=== PATIENT | male | born 1960 | race Caucasian/White ===

== ENCOUNTER 2024-04-05 12:56 | Inpatient (IN) | payer OTHER, SELFPAY ==
[2024-04-04 15:07] VITALS: BP 129/90
[2024-04-04] MEDS: OMNIPAQUE 50 ML PO (16:07)
[2024-04-04 16:17] LABS: % Basophils 0.3 % (0-2); % Immature Granulocytes 0.4 % (0-0.5); % Lymphocytes 8.9 % (20.5-51.1); % Monocytes 3.7 % (1.7-9.3); % Neutrophils 85.7 % (42.2-75.2); Absolute Eosinophils 0.1 10^3/uL (0-0.7); Absolute Immature Granulocytes 0.1 10^3/uL (0-0.05); Absolute Monocytes 0.4 10^3/uL (0.1-0.6); Hemoglobin 14.8 g/dL (13.0-18.0); Mean Corp Hgb Conc. 34.4 g/dL (33.0-37.0); Mean Corpuscular Hgb 29.6 pg (27.0-31.0); Mean Platelet Volume 9.7 fL (7.4-10.4); Nucleated Red Blood Cells % 0 % (-); Platelet Count 272 10^3/uL (130-400); Red Cell Dist. Width 13.7 % (11.5-14.5); White Blood Cell Count 11.7 10^3/uL (4.8-10.8)
[2024-04-04 16:24] VITALS: BMI 25.9
[2024-04-04 16:31] LABS: ALT (SGPT) 18 U/L (0-50); AST (SGOT) 24 U/L (17-59); Albumin 4.2 g/dl (3.5-5.0); Alkaline Phosphatase 78 U/L (38-126); Blood Urea Nitrogen 23 mg/dl (9-20); Calcium 10.2 mg/dl (8.4-10.2); Carbon Dioxide 28 mmol/L (22-30); Chloride 96 mmol/L (98-107); Estimated Creatinine Clearance 97 ml/min; Glucose 147 mg/dl (70-99); Potassium 4.2 mmol/L (3.5-5.1); Sodium 138 mmol/L (135-145); Total Protein 7.2 g/dl (6.3-8.2); eGFR > 60.00
[2024-04-04 17:05] LABS: Lipase 34 U/L (23-300)
[2024-04-04 17:33] LABS: Urine Albumin 1+ (Neg - Trace); Urine Bilirubin Negative (Negative); Urine Character Clear (Clear); Urine Color Yellow; Urine Glucose Negative (Negative); Urine Ketone Trace (Negative); Urine Leukocyte Negative (Negative); Urine Nitrite Negative (Negative); Urine Occult Blood 2+ (Negative); Urine Urobilinogen Negative (Neg - 1+)
[2024-04-04 17:41] LABS: Urine Bacteria Few (Negative); Urine Mucus Many; Urine Squamous Cell 0-2 /LPF (Few); Urine White Cell 0-2 /HPF (0-5)
[2024-04-04] MEDS: ZOFRAN 4 MG IV (19:14)
[2024-04-04 19:16] VITALS: BP 148/90
[2024-04-04 20:00] VITALS: BP 130/90
[2024-04-04] MEDS: ZOSYN 50 IV (20:18)
--- NOTE | 2024-04-04 20:24 | ED.GENMED ---
History of Present Illness
General
Chief Complaint: Abdominal Pain
Source: patient
Exam Limitations: none
Time Seen by Provider: 04/04/24 15:26
Nursing documentation reviewed up to this point in time: agreed with
History of Present Illness
History of Present Illness:
Patient to ED with complaint of diffuse abdominal pain. States pain started on Tuesday after exercising and continues to worsen. Initially he thought it due to a muscle strain. Has been taking ibuprofen q6 since. This AM he had an episode of
vomiting and diarrhea. He was seen by his PCP and advised to come to eD for eval. Reports temp of 100.5 on Tuesday, no fever since. Had colonoscopy a few months ago, polyp removed, otherwise normal.
Past History
Past History
ED Past Medical History: Hypercholesterolemia
ED Past Surgical History: Other (hernia left inguinal)
Social History
Tobacco: Non-smoker
Alcohol: None
Review of Systems
Review of Systems
Allergies reviewed?: Yes
All Other Systems: ROS reviewed and negative except as documented in HPI and ROS
Constitutional: Reports no symptoms
EENT: Reports no symptoms
Respiratory: Reports no symptoms
Cardiac: Reports no symptoms
ABD/GI: Reports abdominal pain, nausea, vomiting (1 episode this AM) and diarrhea (1 episode this AM)
: Reports no symptoms
Musculoskeletal: Reports no symptoms
Skin: Reports no symptoms
Neurological: Reports no symptoms
Psychiatric: Reports no symptoms
Phy Exam
General Physical Exam
General Presentation: well appearing and no apparent distress
General age: appears stated age
General Skin: warm and dry
General Habitus: normal
General Mental: alert
Cardiovascular Exam
Cardiovascular Exam: regular rate/rhythm and no edema
Pulmonary Exam
Pulmonary Exam: lungs clear and no respiratory distress
Gastrointestinal Exam
Gastrointestinal Exam: normal bowel sounds, soft, no organomegaly, non distended, no cva tenderness and guarding
Palpation: generalized: Moderate tenderness (Diffuse. L>R)
Musculoskeletal Exam
Musculoskeletal Exam: full ROM and neuro vasc intact
Skin Exam
Skin Exam: normal color, warm/dry and no rash
Psychiatric Exam
Psychiatric Exam: normal mood/affect
Course
Orders/Labs/Results
Orders:
Orders
04/04/24 16:02
CT Abd/pel W Iv And Oral Contr Urgent
Comment:
Reason For Exam: diffuse abd pain
Iohexol [Omnipaque] See Protocol PO NOW STA
04/04/24 16:13
Complete Blood Count/With Diff Urgent
Comprehensive Metabolic Panel Urgent
Lipase Urgent
04/04/24 17:08
US Abdomen Complete/Upper Urgent
Comment:
Reason For Exam: upper abd. pain
04/04/24 17:27
Urinalysis Reflex To Culture Urgent
Date Specimen was Collected: 04/04/24
Time Specimen was Collected: 17:26
Urine Microscopic Reflex Cult Urgent
04/04/24 18:56
HYDROmorphone [Dilaudid] 0.5 mg IV NOW STA
Ondansetron Injectable [Zofran] 4 mg IV NOW STA
04/04/24 20:09
Piperacillin/Tazo 3.375 Gram [Zosyn] 3.375 gram in 50 ml IV NOW
04/04/24 21:11
Admit/Transfer Patient As Directed
Co-Sign Provider:
Level of Care: Observation services
Assign to:: Medical/Surgical
Physician / Group: , surgical services
Diagnosis: Acute uncomplicated appendicitis
PRN Pain Medication Management As Directed
May give lesser potent ordered pain med per pt: Yes
preference::
Protocol:: Medication orders for pain may be administered in a
manner that supports deferring to patient preference
when the pt is:
- Requesting an ordered lesser potent pain medication.
Least to most potent pain medications are defined
as: acetaminophen < NSAID < tramadol < opioids
(morphine, oxycodone, hydromorphone).
- Requesting a lesser dose of the same medication IF
ORDERED.
- Requesting a less intrusive route of administration
if both routes are prescribed by the provider (PO <
IV).
04/04/24 21:12
Code Status As Directed
Resuscitation Status: Full Code
04/04/24 22:00
Flush (0.9% Sodium Chloride) [Flush (Nss)] See Dose Instructions IV PER PROTOCOL
04/04/24 22:23
0.9% Sodium Chloride 1000 ml [Nss] 1,000 ml IV 120 mls/hr
Acetaminophen [Tylenol] 650 mg PO Q4HPRN PRN
Bisacodyl [Dulcolax] 10 mg RECTAL [id number] PRN
Docusate W/Senna [Senokot-S] 1 tablet PO BIDPRN PRN
HYDROmorphone [Dilaudid] 0.5 mg IV Q4HPRN PRN
Ondansetron Injectable [Zofran] 4 mg IV Q6HPRN PRN
Polyethylene Glycol Powder [Miralax] 17 grams PO DAILYPRN PRN
04/04/24 22:23
Activity As Directed
Activity Level: Out of Bed-Early Mobility
Vital Signs As Directed
Frequency: Per unit guidelines
DX Deep Vein Thrombosis Video Routine
04/05/24 02:00
Piperacillin/Tazo 3.375 Gram [Zosyn] 3.375 gram in 50 ml IV Q6H
04/05/24 Breakfast
NPO
Allow oral meds: Yes
Allow clear liquids: No
04/05/24 18:00
Enoxaparin Sodium [Lovenox] 40 mg SC QPM
Abnormal Lab Results
04/04/24 04/04/24
16:13 17:27
WBC 11.7 H 10^3/uL
(4.8-10.8)
Abs Immat Gran (auto) 0.1 H 10^3/uL
(0-0.05)
Absolute Neuts (auto) 10.0 H 10^3/uL
(1.4-6.5)
Absolute Lymphs (auto) 1.0 L 10^3/uL
(1.2-3.4)
Neutrophils % 85.7 H %
(42.2-75.2)
Lymphocytes % 8.9 L %
(20.5-51.1)
Chloride 96 L mmol/L
(98-107)
BUN 23 H mg/dl
(9-20)
Glucose 147 H mg/dl
(70-99)
Total Bilirubin 2.0 H mg/dl
(0.2-1.3)
Urine Ketones Trace A
(Negative)
Ur Occult Blood Reflex 2+ A
(Negative)
Urine RBC 3-6 A /HPF
(0-2)
Urine Bacteria (Reflex) Few A
(Negative)
Urine Albumin (Reflex) 1+ A
(Neg - Trace)
04/04/24 16:13
04/04/24 16:13
Vital Signs
Initial and Last Documented VS:
Initial Vital Signs
Temp Pulse Resp BP Pulse Ox
98.2 F 91 20 129/90 100
04/04/24 15:07 04/04/24 15:07 04/04/24 15:07 04/04/24 15:07 04/04/24 15:07
Last Documented Vital Signs
Temp Pulse Resp BP Pulse Ox
98.2 F 80 20 135/85 96
04/05/24 07:06 04/05/24 07:06 04/05/24 07:06 04/05/24 07:06 04/05/24 08:00
*Radiology
Radiology exam reviewed: radiology read reviewed
*Pulse Oximetry
Patient hypoxic: no
*Critical Care Note
Total Time (30-74mins, 75-104mins- exclusive of procedures): Not Applicable
Update Note
Update Note:
Dr. Donnelly notified of CT findings. Patient to be admitted to his service. NUZHATOWarren Oliveira started in ED. Discussed findings and plan with patient and spouse. Patient is agreeable to admission.
ED Attending Note
-
Portions of this chart may have been created with voice recognition software.� Occasional wrong word or��sound alike� substitutions may have occurred due to the inherent limitations of voice recognition software.
Discharge Plan
Departure
Patient Disposition: Admit
Date of Disposition: 04/04/24
Time of Disposition: 20:31
Presentation/result/management discussed w/ accepting MD/DO: Dr. Donnelly
Patient with high blood pressure during this ER visit?: No
Condition: Fair
Covid-19: Not Applicable
Discharge Problem:
Acute appendicitis, uncomplicated, SBO (small bowel obstruction)
Interventions
Interventions:
*Risk Screen - Suicide Last Done: 04/04/24 22:18
*General Assessment Last Done: 04/04/24 22:18
*Neglect/Abuse Screening Last Done: 04/04/24 22:18
ED- Fall Risk Assessment Last Done: 04/04/24 16:24
*ED COVID-19 Vaccine History Last Done: 04/04/24 22:38
*Nursing Disposition Last Done: 04/04/24 22:38
QZ-Cibotx-Hinvcyliry Assessment Last Done: 04/04/24 16:24
Discharge Date and Time
Discharge Date/Time: 04/04/24 22:40
[2024-04-04 21:00] VITALS: BP 136/89
--- NOTE | 2024-04-04 21:23 | HPS.HSE ---
Addendum entered and electronically signed by Danny Ruiz MD 04/05/24 10:27:
Patient seen and examined independently of admitting nurse practitioner. Agree with documented progress note with additions/details noted here.
HPI: 63-year-old male who is in his usual baseline state of health until this past Tuesday when he woke with some mild abdominal discomfort which was generalized in nature. After going to the gym and exercising midday this pain increased in severity
and became sharp and more in the right lower quadrant. He continue to observe his symptoms over the past few days and has developed associated anorexia, chills as well as diffuse abdominal discomfort. Bloating and distention particularly over the
last 24 hours. Normal bowel movement on Tuesday. Loose bowel movements Tuesday. Was referred for emergency department evaluation yesterday evening after being seen by his primary care provider.
No similar episodes in the past. Pain persistent and greatest in the suprapubic right lower quadrant. Nausea continues but no further vomiting. Passing flatus occasionally and feels pressure/urge to have bowel movement.
Denies any significant or active medical history. Only past abdominal surgical history is left inguinal herniorrhaphy.
AF VSS
NAD AAO x 3; acutely ill but comfortable appearing lying in hospital bed. at bedside.
ABD: Softly distended tenderness palpation localized in right lower quadrant with voluntary guarding. Positive Rovsing sign.
Assessment: 63-year-old male with acute appendicitis and probable reactive ileus.
Reviewed with patient history, examination and CT imaging consistent with acute appendicitis. Discussed both operative and nonoperative management options and associated risks/benefits of approaches. Patient is in agreement to proceed with
appendectomy. Reviewing radiologist report it has been read as a possible small bowel obstruction. Discussed with patient and his . This is unlikely given history and on personal review of imaging pattern more consistent with ileus due to
severity of appendicitis.
Laparoscopic appendectomy reviewed in detail with the patient. Discussed operative technique utilizing diagrams or drawings, alternative management options, benefits and potential risks such as but not limited to bleeding, infectious or wound
healing complications, iatrogenic injury to surrounding viscera and staple line leakage. Discussed the typical postoperative recovery pending operative findings.
Any of the patient's concerns or questions were fully addressed and informed consent was obtained.
Plan: OR for laparoscopic appendectomy.
Empiric antibiotic coverage with Zosyn.
Nothing by mouth, IV fluid hydration and supportive care awaiting operative room availability.
SCDs for DVT prophylaxis
Original Note:
Family Physician
-
Family Physician: Tawanda Brady
Chief Complaint
-
Abdominal pain
History of Present Illness
a 63 years old male with PMH of hypercholesteremia and past surgical history of LT inguinal hernia repair(2019). Present in ER with a complain of abdominal pain started Tuesday after exercising. Patient took Advil as assuming the pain was related to
muscle strain. Pain started as generalized abdominal pain, described as sharp, stabbing pain that increases with movement. This morning pain get worse and associated with nausea, vomiting x1, diarrhea, and fever 100.5. Patient was seen by the PCP
and advised to come to ER for eval. Denied constipation, urinary symptoms, SOB, chest pain or any other symptoms.
Medical History
Past Medical History
Past Medical History: Reports Hypercholesterolemia
Past Surgical History: Reports Other (LT inguinal hernia repair)
Social History
Tobacco: Non-smoker
Alcohol: Occasional
Drug: None
Personal:
Living: With Family
Employment: Other
Family History
Family History: Not pertinent
Allergies / Home Medications
Allergies reflects when Allergies were last updated in [facility].
Home Medications with original date entered in [facility]
Allergy/Medication List:
Patient Allergies
Allergy/AdvReac Type Severity Reaction Status Date / Time
No Known Allergies Allergy Verified 04/04/24 15:07
Home Medications Table - record
�Medication �Instructions �Recorded �Confirmed
bismuth subsalicylate 262 mg 2 tab PO Q1HPRN PRN stomach issues 04/04/24 04/04/24
chewable tablet (Pepto-Bismol)
calcium carbonate (Antacid 200 mg PO BIDPRN PRN stomach issues 04/04/24 04/04/24
(calcium carbonate))
fluticasone propionate 50 1 spray intranasal DAILYPRN PRN 04/04/24 04/04/24
mcg/actuation nasal allergies
spray,suspension
ibuprofen 200 mg tablet (Advil) 400 mg PO Q6HPRN PRN mild pain 04/04/24 04/04/24
rosuvastatin 10 mg tablet 10 mg PO DAILY 04/04/24 04/04/24
therapeutic multivitamin 1 tab PO DAILY 04/04/24 04/04/24
Review of Systems
-
A 12 point ROS was completed and negative except as noted: Yes
Constitutional: Reports No Symptoms
EENT: Reports No Symptoms
Respiratory: Reports No Symptoms
Cardiac: Reports No Symptoms
Abdomen/GI: Reports Abdominal Pain, Nausea, Vomiting and Diarrhea
: Reports No Symptoms
Musculoskeletal: Reports No Symptoms
Hematologic/Lymphatic: Reports No Symptoms
Psych: Reports No Symptoms
Physical Exam
Vital Signs
Vital Signs
Temp Pulse Resp BP Pulse Ox
98.2 F 89 22 148/90 97
04/04/24 15:07 04/04/24 19:16 04/04/24 19:16 04/04/24 19:16 04/04/24 16:00
Physical Exam
General: No Apparent Distress
Respiratory: Clear
Cardiac: Regular Rhythm
GI: Soft, Non Distended and Tender (Slightly tender RLQ and LUQ)
Musculoskeletal: No Edema
Neuro: Awake and AO x 3
Laboratory Results
-
04/04/24 16:13
04/04/24 16:13
Laboratory Results
Total Bilirubin 2.0 mg/dl (0.2-1.3) H 04/04/24 16:13
AST 24 U/L (17-59) 04/04/24 16:13
ALT 18 U/L (0-50) 04/04/24 16:13
Alkaline Phosphatase 78 U/L (38-126) 04/04/24 16:13
Lipase 34 U/L (23-300) 04/04/24 16:13
Data Reviewed
-
CT Scan: Discussed with Patient
Lab Data: Discussed with Patient
Impression/Plan
-
CT Abd/PLVS result shows
1-Acute uncomplicated appendicitis.
2. Distal small bowel obstruction with transition point in the left abdomen.
WBC 11.7
IMPRESSION:
Acute uncomplicated appendicitis
PLAN:
Admit/observation/ med-surg Dr. Donnelly (Surgical services)
NPO
IVF
Abx Zosyn
Analgesics as needed
Antiemetics as needed
Hypercholesteremia
On Rosuvastatin
DVT prophylaxis Lovenox
Code status Full code
[2024-04-04 22:00] VITALS: BP 135/89
[2024-04-04 22:34] VITALS: BP 147/88; BMI 25.4
[2024-04-04] MEDS: NSS 1000 IV (22:49)
[2024-04-05] VITALS (9 sets, daily range): BP systolic 116–135; BP diastolic 65–88
[2024-04-05] MEDS: ZOSYN 50 IV ×4 (01:02→20:45)
[2024-04-05] MEDS: DILAUDID 0.5 MG IV (01:06)
[2024-04-05] MEDS: ZOFRAN 4 MG IV (08:21)
--- NOTE | 2024-04-05 09:50 | CM ---
Patient seen bedside.
Spouse Sarah in room.
Patient for OR today/appe.
Patient independent prior to admission without assistive devices.
patient drives.
No Hx VN or snf.
PCP; Dr Brady
Pharmacy: [facility]
Plan: home no needs anticipated.
--- NOTE | 2024-04-05 11:12 | W.SUR.PREOP ---
Pre-Operative Surgical Note
-
I have examined this patient prior to the performance of the scheduled procedure.
The patient's condition is unchanged from the time of the current History and
Physical and the patient is able to undergo the scheduled procedure.
--- NOTE | 2024-04-05 12:40 | W.IMMPOSTOP ---
Addendum entered and electronically signed by Danny Ruiz MD 04/05/24 13:13:
#[id number]
Original Note:
Surgical Immed Post Op Note
-
Primary Surgeon: Joseph
Assisting Surgeon: None
Pre-op Diagnosis: Acute Appendicitis
Post-op Diagnosis: Acute Appendicitis with localized peritonitis and purulence without abscess
Ileus
Procedure Performed: Lap Appy
Anesthesia Type: GETA + 0.25% Marcaine
Specimen / Cultures: Appendix
Estimated Blood Loss: 4 mL
Complications: None
Operative Findings: Diffusely distended small bowel and stomach consistent with ileus. OG tube with 300 mL bilious gastric contents for decompression. Distal small bowel ran proximally and there was no evidence of small bowel obstruction as
suggested by radiology. Acutely inflamed, distended and indurated appendix adherent to peritoneum with surrounding exudate and purulence. No gross perforation. No disruption of appendix with appendectomy. Purulent free fluid in the pelvis as
well without abscess. Appendectomy completed with harmonic for hemostasis/mesoappendix and Endo AROLDO dominguez 45 mm stapler at base of the appendix. Right lower quadrant pelvis suctioned and locally irrigated until clear.
Plan: Anticipating degree of ileus postoperatively will limit to sips and chips of clears today.
IV fluid
As needed analgesics/antiemetics
Continue Zosyn and discharge for full week coverage of postoperative antibiotics
Updated patient's postoperatively in the waiting area
[2024-04-05] MEDS: NSS 1000 IV (16:04)
[2024-04-05] MEDS: LOVENOX 40 MG SC (18:00)
[2024-04-06] MEDS: NSS IV (00:59)
[2024-04-06] MEDS: ZOSYN 50 IV ×4 (01:00→19:50)
[2024-04-06] MEDS: NSS 1000 IV ×2 (01:01→10:27)
--- NOTE | 2024-04-06 06:52 | W.PN.GS2 ---
Addendum entered and electronically signed by Brown Callahan MD 04/06/24 14:43:
Patient seen and examined.
No complaints. Denies any abdominal pain. No nausea or vomiting. Passing flatus, no BM. Afebrile. Voiding.
Gen: NAD
Abd: soft, NT/ND, non-peritoneal, incisions c/d/i - no erythema, ecchymosis or drainage
Patient is a 63 yo M POD#1 s/p laparoscopic appendectomy
AVSS
Recovering well. No postoperative concerns. Ileus watch due to distended small bowel seen on CT scan reactive from appendicitis.
-- Clears, possible regular diet for dinner
-- Pain control: Tylenol, Toradol, Oxycodone
-- Abx: Zosyn, plan for 5 days Augmentin on DC
-- HLIV if tolerating diet
-- Home meds
-- DVT: Lovenox
-- GI: PPI
-- DC pending progression, today versus tomorrow
Original Note:
Today's Communication / Plan
-
Patient's diet to be advanced to clear liquid. Will continue IV antibiotics.
Assessment / Plan
-
Assessment:
Patient is a 63yo M POD#1 with recent laparoscopic appendectomy due to acute appendicitis with localized peritonitis, purulence without abscess, and reactive ileus.
Plan:
AFVSS
Patient underwent successful laparoscopic appendectomy.
Diffusely distended small bowel and stomach was noted during the procedure which is consistent with ileus.
No evidence of small bowel obstruction was noted
The appendix was acutely inflamed, distended and had surrounding exudate and purulence.
Patient has no nausea or vomiting since procedure and has minimal pain only around incision sites
Able to tolerate ice chips and sips of clears -> advanced to clear liquid diet
IV fluids until patient can tolerate regular diet
Advance diet to regular diet today
Currently on Zosyn, will discharge with PO Augmentin for 7 days
IV Protonix given
Analgesics/Antiemetics PRN
DVT Prophylaxis: Lovenox
Subjective Data
-
Date of Service: April 06, 2024
Patient has been feeling well after the procedure with no complaints of any nausea, vomiting, fevers or chills. Patient has not had a bowel movement but has been passing flatus. He does not complain of much pain other than some tenderness around the
incision sites.
Objective Data
-
Intake and Output
04/04/24 04/05/24 04/06/24
06:59 06:59 06:59
Intake Total 3490 / 3490
Balance 3490 / 3490
Intake:
IV fluids (Total) 3290 / 3290
Normosal 150 / 150
IV piggybacks 200 / 200
Other:
Number of approximated MODERATE 1 2
amounts of urine
Vital Signs
Temp Pulse Resp BP Pulse Ox
97.8 F 83 14 131/74 96
04/05/24 23:30 04/05/24 23:30 04/05/24 23:30 04/05/24 23:30 04/05/24 23:30
Lab Results
04/04/24 16:13
04/04/24 16:13
Calcium 10.2 mg/dl (8.4-10.2) 04/04/24 16:13
Total Bilirubin 2.0 mg/dl (0.2-1.3) H 04/04/24 16:13
AST 24 U/L (17-59) 04/04/24 16:13
ALT 18 U/L (0-50) 04/04/24 16:13
Alkaline Phosphatase 78 U/L (38-126) 04/04/24 16:13
Total Protein 7.2 g/dl (6.3-8.2) 04/04/24 16:13
Albumin 4.2 g/dl (3.5-5.0) 04/04/24 16:13
Physical Exam
-
Gen: NAD
Abd: Soft, mildly distended, mild tenderness around incision sites, incision sites non-erythematous and non-draining
[2024-04-06 07:25] VITALS: BP 135/84
[2024-04-06] MEDS: PROTONIX IV 40 MG IV (09:24)
[2024-04-06] MEDS: NSS (PRESERVATIVE FREE) 10 ML IV (09:24)
[2024-04-06 15:18] VITALS: BP 141/85
--- NOTE | 2024-04-06 15:19 | W.DCSUMMARY ---
Discharge Summary
Discharge Data
Date of Admission: 04/05/24
Date of Discharge: 04/07/24
-
Pending Results: No
Hospital Course
Mr Grossman is a 63 yo male who presented through the ED with 4 day history of abdominal pain which had increased in severity and localized to the right lower quadrant. Imaging and exam were consistent with acute appendicitis with reactive ileus noted
as well. He was taken to the OR for laparoscopic appendectomy with localized peritonitis and purulence noted without abscess. Given presence of ileus, diet was advanced slowly post operatively but well tolerated. He was discharged to home once
tolerating a solid diet. Post operatively he had minimal pain and over the counter agents were able to be utilized for pain control. He was given a prescription for oral antibiotics to complete a 7 day course.
Discharge Plan
-
Patient Disposition: Home (Routine Discharge)
Discharge Diagnosis/Procedures: Acute appendicitis. Ileus. Laparoscopic appendectomy
Condition: Good
Diet: As tolerated and Regular
Additional Diets: Smaller meals initially after surgery as abdominal bloating and distention may be common for the first few days or so.
Activity: No strenuous activity
Additional Activity: No lifting over 20 pounds for 3 weeks postoperatively. Walking, standing, stairs and routine daily light activities are all okay as tolerated.
Driving Restrictions: No driving 1 to 2 days or if using narcotics
Bathing Restrictions: OK to Shower
Wound Care: Glue at surgical sites typically peels off in 2 to 3 weeks
Activity Restrictions/Additional Instructions:
�Danny Ruiz MD [facility] General Surgery
[facility]
[address], [address]
[place] [address]
[phone]
Initial Post-Operative Instructions for Laparoscopic/Robotic Surgery
The incision sites are sealed with a surgical glue dressing.� It is safe to shower at any time after surgery when the glue is dry.� Let shower water run over the incisions and then pat dry.
Glue dressing typically peels off in 2-3 weeks.
Abdominal/incisional pain and discomfort, shoulder/scapular pain, bloating, and mild nausea, as well as bruising/stiffness and swelling at the incision sites are common after surgery.� If felt to be excessive, notify us.
Please start postoperative pain management using over the counter medications such as Tylenol and Ibuprofen, per instructions on the bottle, as long as there are no medical reasons why you cannot take these medications.
Ice the incisions sites for 20 minutes every hour or so to help with postoperative incisional pain and reduce postoperative surgical site swelling.� Take care NOT to get an ice burn on the skin surface.
A warm heating pad is often helpful to alleviate shoulder/scapular back pains after laparoscopic procedures.� This pain typically dissipates 24-72hrs post op.
Resume a regular diet initially with smaller meal sizes for 24-36hrs after surgery if not experiencing postoperative nausea or significant bloating/distention.
Constipation is common following surgery and postoperative narcotic use.� May use a stool softener such as Colace (100 mg 2x day) to prevent constipation
If no BM 24hrs after surgery, recommend starting daily Miralax
If no BM in 24-48hrs after starting Miralax --> recommend then using a dose of magnesium citrate or milk of magnesia with a Senokot tablet to help alleviate post operative constipation as long as there is no nausea/vomiting and passing gas.
Resume all preoperative medications as prescribed, unless directed otherwise.
Do not drive or drink alcohol for 24 hrs after having anesthesia or while taking narcotic pain medications.
Resume regular daily light activities, such as walking, standing and going up/down stairs as tolerated within 24hrs of surgery.� Please refrain from lifting over 15-20 lbs or strenuous exercise until postoperative follow up visit &/or approximately
3-4 weeks.�
Call the office with a fever above 101� F, nausea with vomiting, severe abdominal pain, spreading redness and drainage from incision sites or with any concerns/questions.
If not arranged prior to surgery, please call the office to schedule or confirm your 10-14 day postoperative surgical follow-up office visit with Dr. Ruiz.
Referrals:
Danny Ruiz MD [Active] - in two to three weeks
Prescriptions:
New
amoxicillin-pot clavulanate 875-125 mg tablet
1 tab PO Q12 Qty: 12 0RF
acetaminophen [acetaminophen] 325 mg tablet
650 mg PO Q4HPRN PRN (Reason: mild pain) Qty: 1 0RF
Continued
therapeutic multivitamin Tablet
1 tab PO DAILY
calcium carbonate [Antacid (calcium carbonate)] 200 mg calcium (500 mg) Tablet,Chewable
200 mg PO BIDPRN PRN (Reason: stomach issues)
ibuprofen [Advil] 200 mg Tablet
400 mg PO Q6HPRN PRN (Reason: mild pain)
fluticasone propionate 50 mcg/actuation [place],Suspension
1 spray INTRANASAL DAILYPRN PRN (Reason: allergies)
rosuvastatin 10 mg Tablet
10 mg PO DAILY
Discontinued
bismuth subsalicylate [Pepto-Bismol] 262 mg Tablet,Chewable
2 tab PO Q1HPRN PRN (Reason: stomach issues)
Discharge Orders:
Discharge Patient (As Directed); Ordered 04/06/24
Ordered By: Keya Riley
Discharge Date and Time
Print Language: MALAGASY
--- NOTE | 2024-04-06 17:51 | PTCARENOTE ---
Patient reports having bloody BM after eating dinner (first meal on low res diet). Patient does admit to hemorrhoids and that some blood in his stool is normal, but this episode was more than typical. MD made aware, patient to stay in hospital for
another night. Pt agreeable. Plan of care ongoing.
[2024-04-06] MEDS: LOVENOX SC (17:55)
[2024-04-06 23:07] VITALS: BP 150/92
[2024-04-07] MEDS: ZOSYN 50 IV ×2 (02:37→08:36)
[2024-04-07 07:28] VITALS: BP 154/92
[2024-04-07] MEDS: PROTONIX IV 40 MG IV (08:35)
[2024-04-07] MEDS: NSS (PRESERVATIVE FREE) 10 ML IV (08:35)
--- NOTE | 2024-04-07 09:33 | CM ---
Chart reviewed and case repairer met with patient and plan is for home today, no needs.
Plan; Home family to transport.
--- NOTE | 2024-04-07 09:54 | W.PN.GS2 ---
Today's Communication / Plan
-
D/C to home
Assessment / Plan
-
Patient is a 63yo M POD#2 laparoscopic appendectomy due to acute appendicitis with localized peritonitis, purulence without abscess, and reactive ileus.
AFVSS
Tolerating diet, +flatus/stools
Blood in stool last night, similiar to prior hemorrhoidal bleeding episodes but has since passed 2 small nonbloody stools
--Continue LRD for a few days
--Analgesics as needed
--Will transition to PO abx upon discharge
--Dispo planning
Subjective Data
-
Date of Service: April 07, 2024
Patient seen and examined at bedside. Denies n/v. Passing a lot of flatus. Had a larger BM last night with blood, he notes similiar to hemorrhoidal bleeding in the past. Has since passed 2 small bm's, both nonbloody. tolerating diet. Pain is
minimal.
Objective Data
-
Intake and Output
04/06/24 04/07/24 04/08/24
06:59 06:59 06:59
Intake Total 3490 / 3490 480 / 480
Balance 3490 / 3490 480 / 480
Intake:
Oral fluids 480 / 480
IV fluids (Total) 3290 / 3290
Normosal 150 / 150
IV piggybacks 200 / 200
Other:
Number of approximated MODERATE 2 2
amounts of urine
Vital Signs
Temp Pulse Resp BP Pulse Ox
97.8 F 68 18 154/92 96
04/07/24 07:28 04/07/24 07:28 04/07/24 07:28 04/07/24 07:28 04/07/24 07:28
Lab Results
04/04/24 16:13
04/04/24 16:13
Calcium 10.2 mg/dl (8.4-10.2) 04/04/24 16:13
Total Bilirubin 2.0 mg/dl (0.2-1.3) H 04/04/24 16:13
AST 24 U/L (17-59) 04/04/24 16:13
ALT 18 U/L (0-50) 04/04/24 16:13
Alkaline Phosphatase 78 U/L (38-126) 04/04/24 16:13
Total Protein 7.2 g/dl (6.3-8.2) 04/04/24 16:13
Albumin 4.2 g/dl (3.5-5.0) 04/04/24 16:13
Physical Exam
-
Gen: NAD
Abd: Soft, mildly distended (improved), NT, incision sites non-erythematous and non-draining
== END 2024-04-07 10:38 | disposition home or self-care (01) | DRG 398 ==
LOC: 4 WEST ACU 12:56
PROVIDERS: Nurse Practitioner; ADMITTING PHYSICIAN Surgery; ATTENDING PHYSICIAN Surgery; EMERGENCY PHYSICIAN Emergency Medicine; FAMILY PHYSICIAN Family Medicine
PROC: 0DTJ4ZZ Resection of Appendix, Percutaneous Endoscopic Approach (ICD-10-PCS; 2024-04-05)
DX: K35.30 Acute appendicitis with localized peritonitis, without perforation or gangrene (principal); K56.7 Ileus, unspecified; E78.00 Pure hypercholesterolemia, unspecified; Z79.899 Other long term (current) drug therapy
CPT/HCPCS: 88304; 74018; 74177; 76700; 80053; 81003; 81015; 83690; 85025; 96374; 96375; 99285; Q9967